=== PATIENT | male | born 1975 | race Caucasian/White ===

== ENCOUNTER 2019-07-16 12:47 | Day surgery (SDC) | payer OTHER, BC ==
[~2019-07-16] VITALS: Ht 177.8 cm; Wt 88.7 kg
[~2019-07-16 12:47] MED LIST: ACYC800 PO; CEPH500 PO; HYDACE5 PO; Percocet 5-3251 EACH PO; SULTRIDS PO; TRAM50
--- NOTE | 2019-07-16 14:06 | NUR ---
07/16/19 1406 SUZANNA HARMON PATIENT UPDATED ON DELAY IN START OF OPERATION. DR. KRUSE STILL IN PRIOR CASE. PATIENT'S AT BEDSIDE. THIS RN HAS ENGAGED IN VERBAL POST OP INSTRUCTION. CALL LIGHT WITHIN REACH, DENIES NEEDS AT THIS TIME.
--- NOTE | 2019-07-16 14:58 | NUR ---
07/16/19 1458 Chan Elizabeth A SMALL SCABBED OVER LACERATION NOTED ON FRONT ON LEFT LYONS.
== END 2019-07-16 17:00 | disposition home or self-care (01) ==
LOC: ORSCSDS 12:47
PROVIDERS: Orthopaedic Surgery
PROC: 0SBD4ZZ Excision of Left Knee Joint, Percutaneous Endoscopic Approach (ICD-10-PCS; principal; 2019-07-16 14:00)
DX: S83.242A Other tear of medial meniscus, current injury, left knee, initial encounter (principal)
CPT/HCPCS: A9270-GY; J0171; J0690; J2250; J2704; J3010; J7120

== ENCOUNTER 2023-06-13 06:48 | Day surgery (SDC) | payer BC ==
[~2023-06-13] VITALS: Ht 177.8 cm; Wt 82.6 kg
[2023-06-13 08:41] VITALS: BP 106/71
== END 2023-06-13 08:42 | disposition home or self-care (01) ==
LOC: ORSCSDS 06:48
PROVIDERS: Internal Medicine Gastroenterology
PROC: 0DJD8ZZ Inspection of Lower Intestinal Tract, Via Natural or Artificial Opening Endoscopic (ICD-10-PCS; principal; 2023-06-13 08:00)
DX: Z12.11 Encounter for screening for malignant neoplasm of colon (principal); Z87.891 Personal history of nicotine dependence
CPT/HCPCS: J2704; J7120

== ENCOUNTER → 2025-02-25 | Outpatient (CLI) | payer BC | END | disposition home or self-care (01) | LOC: LAB SHORT 14:10 → LAB 14:10 | DX: S86.812A Strain of other muscle(s) and tendon(s) at lower leg level, left leg, initial encounter (principal) | CPT/HCPCS: 85379 ==